=== PATIENT | female | born 1970 | race African-American/Black ===

== ENCOUNTER 2021-09-28 15:45 | Inpatient (IN) | payer OTHER ==
[~2021-09-28] VITALS: Ht 162.6 cm; Wt 78.0 kg
[2021-09-28] MEDS ORDERED: KEPPSOL GT (16:02)
[2021-09-28] MEDS ORDERED: SODIUM CHLORIDE 0.9% 1,000 ML IV ONE ×2 (16:30)
[2021-09-28 17:03] LABS: BASOPHILS % 1.9 % (0.0-2.0); EOSINOPHILS % 0.1 % (0.0-5.0); HEMATOCRIT. 27.8 % (36.0-48.0); HEMOGLOBIN. 9.8 g/dL (12.0-16.0); LYMPHOCYTES % 15.8 % (20.0-50.0); MEAN CORPUSCULAR VOLUME 96.6 fL (81.0-99.0); MEAN PLATELET VOLUME 8.1 fl (7.4-10.4); MONOCYTES % 6.5 % (2.0-8.0); NEUTROPHILS % 75.7 % (40.0-76.0); PLATELET 98 x1000/uL (130-400); RED BLOOD CELL COUNT 2.87 mill/uL (4.2-5.4); RED CELL DISTRIBUTION WIDTH 15.2 % (11.6-14.6)
[2021-09-28 17:08] LABS: CHLORIDE 110 mEq/L (98-107)
[2021-09-28 17:23] LABS: ETHANOL BLOOD 412 mg/dL
[2021-09-28] MEDS ORDERED: CEFTRIAXONE 1 G PREMIX 50 ML IV ONE (18:45)
[2021-09-28] MEDS ORDERED: AZITHROMYCIN 500MG/250ML 250 ML IV ONE (18:45)
[2021-09-28] MEDS ORDERED: ASPIRIN 81MG TABLET PO ONE (23:00)
[2021-09-29] VITALS (25 sets, daily range): BP systolic 89–118; BP diastolic 53–75
[2021-09-29] MEDS ORDERED: SODIUM CHLORIDE 0.9% 500 ML IV ONE (02:45)
[2021-09-29] MEDS ORDERED: DEXT 5%/0.45% NACL 1000ML 1,000 ML IV SCH (11:30)
[2021-09-29] MEDS ORDERED: CHLORDIAZEPOXIDE 25MG CAPSULE PO SCH (11:30)
[2021-09-29] MEDS ORDERED: LEVETIRACETAM 500 MG in SODIUM CHLORIDE 0.9% 100 ML IV SCH (11:30)
[2021-09-29 11:34] LABS: BG BASE EXCESS -3.2 mmol/L (-2.0-2.0); BG CARBOXYHEMOGLOBIN 0.3 % (0.5-1.5); BG DEOXYHEMOGLOBIN 4.4 % (0.0-5.0); BG HCO3 ACT 19.9 mmol/L (22.0-26.0); BG METHEMOGLOBIN 0.5 % (0.0-1.5); BG OXYGEN SATURATION 95.6 % (92.0-98.5); BG OXYHEMOGLOBIN 94.8 % (94.0-97.0); BG PH 7.454 (7.350-7.450); BG PO2 84.5 mmHg (75.0-100.0); BG SAMPLE SITE RIGHT RADIAL; BG TOTAL HEMOGLOBIN 9.7 g/dL (12.0-18.0); BG VENT MODE ROOM AIR
[2021-09-29] MEDS: PANTOPRAZOLE SODIUM 40 MG/VIAL IV SCH (11:59)
[2021-09-29] MEDS ORDERED: LORAZEPAM 2MG/ML CPJ IV NR (12:00)
[2021-09-29] MEDS ORDERED: INFLUENZA VACCINE 05/PF 0.5 ML SYRINGE IM ONE (12:15)
[2021-09-29] MEDS ORDERED: PNEUMOCOCCAL 23-VAL P-SAC VAC 0.5 ML IM ONE (12:15)
[2021-09-29] MEDS: PIPERACILLIN/TAZOBACTAM 3.375 G in DEXTROSE 5% WATER 50 ML IV SCH ×2 (13:19→22:17)
[2021-09-29] MEDS: LEVETIRACETAM 500MG PREMIX 100 ML IV SCH ×2 (13:19→20:16)
[2021-09-29 13:26] LABS: EOSINOPHILS % 0.2 % (0.0-5.0); HEMOGLOBIN. 8.5 g/dL (12.0-16.0); LYMPHOCYTES % 17.8 % (20.0-50.0); MEAN CORPUSCULAR VOLUME 95.7 fL (81.0-99.0); MEAN PLATELET VOLUME 8.1 fl (7.4-10.4); MONOCYTES % 9.2 % (2.0-8.0); NEUTROPHILS % 71.8 % (40.0-76.0); PLATELET 77 x1000/uL (130-400); RED BLOOD CELL COUNT 2.51 mill/uL (4.2-5.4); RED CELL DISTRIBUTION WIDTH 15.4 % (11.6-14.6)
[2021-09-29 13:32] LABS: INR 1.4; PROTHROMBIN TIME 15.1 sec (9.6-11.0)
[2021-09-29 13:34] LABS: CHLORIDE 109 mEq/L (98-107)
[2021-09-29] MEDS ORDERED: LIDOCAINE HCL 1% 20ML VIAL (Pyxis) INJ ONE (13:36)
[2021-09-29 13:41] LABS: LDL CHOLESTEROL 150 mg/dL (5-100)
[2021-09-29 13:43] LABS: HDL CHOLESTEROL 72 mg/dL (40-59)
[2021-09-29 13:46] LABS: CREATINE KINASE MB FRACTION 3.6 ng/mL (0.5-3.6)
[2021-09-29] MEDS ORDERED: ACETAMINOPHEN 650MG SUPP PR PRN (14:00)
[2021-09-29] MEDS ORDERED: ACETAMINOPHEN 325MG TABLET PO PRN (14:00)
[2021-09-29] MEDS ORDERED: ONDANSETRON HCL 4MG/2ML INJ IV PRN (14:00)
[2021-09-29] MEDS ORDERED: BISACODYL 10MG SUPP PR PRN (14:00)
[2021-09-29] MEDS ORDERED: LACTULOSE 20G/30ML UDC PO PRN (14:00)
[2021-09-29] MEDS ORDERED: MORPHINE SULFATE 2 MG/ML CPJ (NOT FOR IM USE) IV PRN (14:00)
[2021-09-29] MEDS: MVI, ADULT NO.1 10 ML, FOLIC ACID 1 MG, THIAMINE HCL 100 MG in DEXT 5%/0.45% NACL 1000M... IV SCH ×4 (14:09)
[2021-09-29] MEDS: CHLORDIAZEPOXIDE 25MG CAPSULE PO SCH ×2 (14:09→22:17)
[2021-09-29] MEDS ORDERED: NALOXONE HCL 0.4MG/ML VIAL IV PRN (14:30)
[2021-09-29] MEDS: MIDODRINE HCL 5MG TABLET PO SCH (17:08)
[2021-09-29] MEDS: LORAZEPAM 2MG/ML CPJ IV PRN (20:16)
[2021-09-29] MEDS: IPRATROPIUM/ALBUTEROL 0.5-3(2.5)MG/3ML NEB HHN SCH (21:01)
[2021-09-30] VITALS (95 sets, daily range): BP systolic 76–119; BP diastolic 45–78
[2021-09-30] MEDS: PHENYLEPHRINE 100 MG in DEXT 5% WATER 250 ML IV PRN ×2 (00:57→23:46)
[2021-09-30] MEDS: DEXT 5%/0.45% NACL 1000ML 1,000 ML IV SCH ×2 (00:57→11:24)
[2021-09-30] MEDS: IPRATROPIUM/ALBUTEROL 0.5-3(2.5)MG/3ML NEB HHN SCH ×4 (01:47→20:34)
[2021-09-30] MEDS ORDERED: MAGNESIUM 2 G PREMIX 50 ML IV ONE (02:00)
[2021-09-30] MEDS ORDERED: DEXT 5% IV SCH (03:00)
[2021-09-30] MEDS ORDERED: MAGNESIUM SULFATE IV SCH (03:00)
[2021-09-30] MEDS ORDERED: WATER IV SCH (03:00)
[2021-09-30] MEDS: PIPERACILLIN/TAZOBACTAM 3.375 G in DEXTROSE 5% WATER 50 ML IV SCH ×3 (05:21→22:24)
[2021-09-30] MEDS: CHLORDIAZEPOXIDE 25MG CAPSULE PO SCH ×3 (05:21→22:24)
[2021-09-30 07:41] LABS: EOSINOPHILS % 0.9 % (0.0-5.0); HEMATOCRIT. 25.8 % (36.0-48.0); LYMPHOCYTES % 20.3 % (20.0-50.0); MEAN PLATELET VOLUME 8.8 fl (7.4-10.4); MONOCYTES % 9.9 % (2.0-8.0); NEUTROPHILS % 67.9 % (40.0-76.0); PLATELET 70 x1000/uL (130-400); RED BLOOD CELL COUNT 2.66 mill/uL (4.2-5.4); RED CELL DISTRIBUTION WIDTH 14.9 % (11.6-14.6)
[2021-09-30 07:49] LABS: CHLORIDE 107 mEq/L (98-107)
[2021-09-30 07:50] LABS: INR 1.4; PROTHROMBIN TIME 15.1 sec (9.6-11.0)
[2021-09-30] MEDS: PANTOPRAZOLE SODIUM 40 MG/VIAL IV SCH (08:54)
[2021-09-30] MEDS: LORAZEPAM 2MG/ML CPJ IV PRN ×3 (08:54→20:07)
[2021-09-30] MEDS: LEVETIRACETAM 500MG PREMIX 100 ML IV SCH ×2 (08:55→20:59)
[2021-09-30] MEDS: MIDODRINE HCL 5MG TABLET PO SCH ×3 (08:55→18:03)
[2021-09-30 13:16] LABS: HEPATITIS B SURFACE ANTIGEN NEGATIVE
[2021-09-30] MEDS: MVI, ADULT NO.1 10 ML, FOLIC ACID 1 MG, THIAMINE HCL 100 MG in DEXT 5%/0.45% NACL 1000M... IV SCH ×4 (14:15)
[2021-09-30 18:35] LABS: CLARITY URINE CLEAR (CLEAR); COLOR URINE YELLOW (YELLOW); KETONES URINE NEGATIVE (NEGATIVE); LEUKOCYTE ESTERASE URINE 3+ (NEGATIVE); NITRITE URINE NEGATIVE (NEGATIVE); OCCULT BLOOD URINE 2+ (NEGATIVE); PH URINE 6.5 (4.5-8.0); PROTEIN URINE NEGATIVE (NEGATIVE); SPECIFIC GRAVITY URINE 1.007 (1.005-1.030)
[2021-09-30 19:21] LABS: *AMPHETAMINES SCREEN URINE NEGATIVE (NEGATIVE); *BARBITURATES SCREEN URINE NEGATIVE (NEGATIVE); *BENZODIAZEPINES SCREEN URINE PRESUMTIVE POSITIVE (NEGATIVE); *COCAINE SCREEN URINE NEGATIVE (NEGATIVE)
[2021-09-30 19:22] LABS: CANNABINOID URINE SCREEN NEGATIVE (NEGATIVE); METHADONE URINE SCREEN NEGATIVE (NEGATIVE); OPIATES URINE SCREEN NEGATIVE (NEGATIVE); PHENCYCLIDINE URINE SCREEN NEGATIVE (NEGATIVE)
[2021-10-01] VITALS (45 sets, daily range): BP systolic 85–119; BP diastolic 43–80
[2021-10-01] MEDS: IPRATROPIUM/ALBUTEROL 0.5-3(2.5)MG/3ML NEB HHN SCH ×3 (02:10→14:01)
[2021-10-01 05:58] LABS: BASOPHILS % 0.7 % (0.0-2.0); EOSINOPHILS % 1.4 % (0.0-5.0); HEMATOCRIT. 25.4 % (36.0-48.0); LYMPHOCYTES % 26.9 % (20.0-50.0); MEAN CORPUSCULAR HEMOGLOBIN 34.4 pg (28.0-32.0); MEAN CORPUSCULAR VOLUME 97.7 fL (81.0-99.0); MEAN PLATELET VOLUME 8.7 fl (7.4-10.4); MONOCYTES % 9.5 % (2.0-8.0); NEUTROPHILS % 61.5 % (40.0-76.0); PLATELET 64 x1000/uL (130-400); RED CELL DISTRIBUTION WIDTH 15.4 % (11.6-14.6)
[2021-10-01 06:19] LABS: CHLORIDE 111 mEq/L (98-107)
[2021-10-01] MEDS: CHLORDIAZEPOXIDE 25MG CAPSULE PO SCH ×2 (06:22→14:48)
[2021-10-01] MEDS: PIPERACILLIN/TAZOBACTAM 3.375 G in DEXTROSE 5% WATER 50 ML IV SCH ×2 (06:23→14:48)
[2021-10-01] MEDS: DEXT 5%/0.45% NACL 1000ML 1,000 ML IV SCH (07:53)
[2021-10-01] MEDS: LEVETIRACETAM 500MG PREMIX 100 ML IV SCH (09:31)
[2021-10-01] MEDS: MIDODRINE HCL 5MG TABLET PO SCH ×2 (09:31→13:50)
[2021-10-01] MEDS: PANTOPRAZOLE SODIUM 40 MG/VIAL IV SCH (09:31)
[2021-10-01] MEDS: LORAZEPAM 2MG/ML CPJ IV PRN ×2 (09:34→14:02)
[2021-10-01] MEDS: MVI, ADULT NO.1 10 ML, FOLIC ACID 1 MG, THIAMINE HCL 100 MG in DEXT 5%/0.45% NACL 1000M... IV SCH ×4 (14:48)
[2021-10-01] MEDS ORDERED: KEPP500 MT (15:55)
== END 2021-10-01 16:00 | disposition left against medical advice (07) | DRG 720 ==
LOC: ER 15:45 → EDBEDREQ 19:00 → EDBEDREQTM 19:00 → MICUSO 22:20 → EDBEDREQ 22:51 → EDBEDREQTM 22:51 → CVICU 09-29 10:12
PROVIDERS: ADMIT Internal Medicine; ATTEND Internal Medicine
PROC: 05HM33Z Insertion of Infusion Device into Right Internal Jugular Vein, Percutaneous Approach (ICD-10-PCS; principal; 2021-09-29)
PROC: 0W993ZZ Drainage of Right Pleural Cavity, Percutaneous Approach (ICD-10-PCS; 2021-10-01)
DX: A41.9 Sepsis, unspecified organism (principal); E87.2 Acidosis; J18.9 Pneumonia, unspecified organism; J90 Pleural effusion, not elsewhere classified; E83.51 Hypocalcemia; K74.60 Unspecified cirrhosis of liver; G90.9 Disorder of the autonomic nervous system, unspecified; E86.0 Dehydration; R73.9 Hyperglycemia, unspecified; G40.909 Epilepsy, unspecified, not intractable, without status epilepticus; Z20.822 Contact with and (suspected) exposure to COVID-19; Y90.8 Blood alcohol level of 240 mg/100 ml or more; Z53.29 Procedure and treatment not carried out because of patient's decision for other reasons; F17.210 Nicotine dependence, cigarettes, uncomplicated; F10.129 Alcohol abuse with intoxication, unspecified; E80.6 Other disorders of bilirubin metabolism; F10.139 Alcohol abuse with withdrawal, unspecified; K80.20 Calculus of gallbladder without cholecystitis without obstruction; Z79.899 Other long term (current) drug therapy
CPT/HCPCS: 32555; 36415; 36600; 71045; 72110; 72170; 76604; 76700; 76937; 78227; 80053; 80061; 80076; 80305; 80320; 81003; 82040; 82140; 82375; 82550; 82553; 82805; 83605; 83615; 83735; 83880; 84134; 84439; 84443; 84478; 84484; 85025; 86705; 86709; 86803; 86850; 86900; 87340; 87426; 88108; 88312; 93005; 93306; 93970; 99291; A9537; C1725; C9113; J0456; J0696; J1953; J2060; J2370; J2543; J3411; J3475; J3490; J7030; J7040; J7060; G0480

== ENCOUNTER 2021-10-06 15:55 | Emergency (ER) | payer OTHER ==
[~2021-10-06] VITALS: Ht 172.7 cm; Wt 68.0 kg
[~2021-10-06 15:55] MED LIST: KEPP500 MT
[2021-10-06 16:01] VITALS: BP 131/56
== END 2021-10-06 23:29 | disposition left against medical advice (07) ==
LOC: ER 15:55
DX: Z53.21 Procedure and treatment not carried out due to patient leaving prior to being seen by health care provider (principal); I49.9 Cardiac arrhythmia, unspecified
CPT/HCPCS: 93005